=== PATIENT | female | born 1995 | race Caucasian/White ===

== ENCOUNTER 2020-12-30 08:10 | Day surgery (SDC) | payer MEDICAID, SELFPAY ==
[~2020-12-30] VITALS: Ht 154.9 cm; Wt 80.7 kg
[2020-12-30] MEDS ORDERED: BENZOCAINE 20% 0.5mL UD SPRAY MM ONE (08:17)
[2020-12-30] MEDS ORDERED: MEPERIDINE 100 MG INJ. 100 MG/ML VIAL ONE (08:17)
[2020-12-30] MEDS ORDERED: SIMETHICONE 40 MG/0.6 ML ML ONE (08:17)
[2020-12-30] MEDS ORDERED: MIDAZOLAM HCL 5 MG/5 ML VIAL ONE (08:17)
[2020-12-30] MEDS ORDERED: DIPHENHYDRAMINE INJ 50 MG/ML VIAL ONE (08:30)
[2020-12-30 08:33] LABS: HCG,QUAL RESULT NEGATIVE (NEGATIVE)
[2020-12-30] MEDS ORDERED: fentaNYL CITRATE/PF 100 MCG/2 ML AMP ONE (08:33)
[2020-12-30 10:16] VITALS: BP_SYST 121
== END 2020-12-30 10:45 | disposition home or self-care (01) ==
LOC: SDS 08:10 → SMU 08:10 → SDS 10:45
PROVIDERS: ATTEND Internal Medicine
DX: R19.4 Change in bowel habit (principal); K63.5 Polyp of colon; K64.8 Other hemorrhoids; K29.50 Unspecified chronic gastritis without bleeding; K52.9 Noninfective gastroenteritis and colitis, unspecified; Z20.822 Contact with and (suspected) exposure to COVID-19; Z79.899 Other long term (current) drug therapy
CPT/HCPCS: 43239; 45380; 45385; 84703; 88305; 88312; 88313; 99152; 99153; G0378; J1200; J2175; J2250; J3010; U0003; 45384